=== PATIENT | male | born 1970 | race Two or more races ===

== ENCOUNTER → 2017-10-15 12:40 | Outpatient (CLI) | payer OTHER ==
[~2017-10-15 12:40] MED LIST: NAPROXEN250 MG; NEURONTIN300 MG
== END | disposition home or self-care (01) ==
LOC: LAB 12:40
DX: I10 Essential (primary) hypertension (principal); E78.2 Mixed hyperlipidemia; D72.828 Other elevated white blood cell count; D51.3 Other dietary vitamin B12 deficiency anemia; D51.0 Vitamin B12 deficiency anemia due to intrinsic factor deficiency; D51.8 Other vitamin B12 deficiency anemias; D55.0 Anemia due to glucose-6-phosphate dehydrogenase [G6PD] deficiency; D51.1 Vitamin B12 deficiency anemia due to selective vitamin B12 malabsorption with proteinuria; E55.9 Vitamin D deficiency, unspecified; K90.89 Other intestinal malabsorption; E06.3 Autoimmune thyroiditis; E03.8 Other specified hypothyroidism; R97.0 Elevated carcinoembryonic antigen [CEA]; R97.8 Other abnormal tumor markers

== ENCOUNTER 2017-10-15 13:14 | Outpatient (CLI) | payer OTHER | END 2017-10-15 13:17 | disposition home or self-care (01) | LOC: SONOGRAMA 13:14 | DX: E04.2 Nontoxic multinodular goiter (principal); I10 Essential (primary) hypertension; E78.2 Mixed hyperlipidemia; D72.828 Other elevated white blood cell count; D51.3 Other dietary vitamin B12 deficiency anemia; E06.3 Autoimmune thyroiditis; E03.8 Other specified hypothyroidism ==

== ENCOUNTER 2018-02-17 14:32 | Outpatient (CLI) | payer OTHER | END 2018-02-17 20:05 | disposition home or self-care (01) | LOC: LAB 14:32 | DX: D72.828 Other elevated white blood cell count (principal); D51.0 Vitamin B12 deficiency anemia due to intrinsic factor deficiency; D51.1 Vitamin B12 deficiency anemia due to selective vitamin B12 malabsorption with proteinuria; D51.3 Other dietary vitamin B12 deficiency anemia; I10 Essential (primary) hypertension; E78.2 Mixed hyperlipidemia; E03.8 Other specified hypothyroidism; E55.9 Vitamin D deficiency, unspecified; K92.89 Other specified diseases of the digestive system; D50.8 Other iron deficiency anemias; D51.8 Other vitamin B12 deficiency anemias; R97.0 Elevated carcinoembryonic antigen [CEA]; R97.8 Other abnormal tumor markers ==

== ENCOUNTER 2018-06-25 11:16 | Outpatient (CLI) | payer OTHER | END 2018-06-25 11:23 | disposition home or self-care (01) | LOC: LAB 11:16 | DX: D47.1 Chronic myeloproliferative disease (principal); D72.828 Other elevated white blood cell count; D51.1 Vitamin B12 deficiency anemia due to selective vitamin B12 malabsorption with proteinuria; D51.3 Other dietary vitamin B12 deficiency anemia; I10 Essential (primary) hypertension; E78.2 Mixed hyperlipidemia; E03.8 Other specified hypothyroidism; E55.9 Vitamin D deficiency, unspecified; K90.89 Other intestinal malabsorption; G47.33 Obstructive sleep apnea (adult) (pediatric) ==